=== PATIENT | male | born 1955 | race Caucasian/White ===

== ENCOUNTER 2020-06-15 06:30 | Day surgery (SDC) | payer OTHER ==
--- NOTE | 2020-06-15 08:53 | NUR ---
DISCHARGE SUMMARY PT A&OX4, VSS, ESCORTED PT OFF UNIT WITH ALL PERSONAL POSSESSIONS, TO FRIEND WAITING TO TAKE PT HOME. Patient up to Ambulate independently. Gait steady. Discharge instructions reviewed with patient. Patient verbalizes understanding. Copy given to patient to take home. IV DC'D.
== END 2020-06-15 23:30 | disposition home or self-care (01) ==
LOC: ORD 06:30 → CT 06:30 → ORD 07:30
DX: I25.10 Atherosclerotic heart disease of native coronary artery without angina pectoris (principal); I71.2 Thoracic aortic aneurysm, without rupture; I42.0 Dilated cardiomyopathy; Z87.891 Personal history of nicotine dependence
CPT/HCPCS: 75574; Q9967

== ENCOUNTER 2022-03-13 12:07 | Day surgery (SDC) | payer MEDICARE ==
[~2022-03-13] VITALS: Ht 188 cm; Wt 104.6 kg
[~2022-03-13 12:07] MED LIST: ATOR40TA
--- NOTE | 2022-03-13 12:32 | NUR ---
[facility] warming gown applied History, Chart, Medications and Allergies reviewed before start of procedure.Lungs clear T/O to Auscultation. Pre-Op teaching done. Pt verbalizes understanding. Patient confirms NPO status and agrees with scheduled surgery. Patient States Post-Procedure ride home has been arranged.
--- NOTE | 2022-03-13 14:12 | NUR ---
03/13/22 1412 Regis Crowley HISTORY, CHART, MEDICATIONS AND ALLERGIES REVIEWED BEFORE START OF PROCEDURE. PATIENT CONFIRMS NPO STATUS AND AGREES WITH SCHEDULED PROCEDURE. 3-LEAD EKG REVIEWED WITH PHYSICIAN PRIOR TO START OF PROCEDURE. MONITOR INTACT WITH CONTINUOUS PULSE OXIMETRY,CAPNOGRAPHY, 3-LEAD EKG, INTERMITTENT BP. SUPPLEMENTAL O2 TO BE TITRATED THROUGHOUT PROCEDURE TO MAINTAIN O2 SATURATION ABOVE 90%. PATIENT DETERMINED TO BE ASA APPROPRIATE FOR PROPOFOL SEDATION PRIOR TO START OF PROCEDURE BY DR. DOWNEY
--- NOTE | 2022-03-13 14:58 | NUR ---
Patient up to Ambulate independently. Gait steady. Discharge instructions reviewed with patient. Patient verbalizes understanding. Copy given to patient to take home.AWAITING FOR PT RIDE BEFORE DISCHARGE. WILL BE Discharged via wheelchair to private car for ride home WHEN RIDE ARRIVES
== END 2022-03-13 23:00 | disposition home or self-care (01) ==
LOC: ORSCMMR 12:07 → ORSCSDS 13:15 → ORD 13:15 → ORSCMMR 23:00
PROVIDERS: Internal Medicine Gastroenterology
PROC: 0DJ08ZZ Inspection of Upper Intestinal Tract, Via Natural or Artificial Opening Endoscopic (ICD-10-PCS; principal; 2022-03-13 13:15)
DX: K92.1 Melena (principal); K44.9 Diaphragmatic hernia without obstruction or gangrene; Z80.0 Family history of malignant neoplasm of digestive organs; I48.0 Paroxysmal atrial fibrillation; Z79.899 Other long term (current) drug therapy; Z87.891 Personal history of nicotine dependence
CPT/HCPCS: J2250; J2704; J7120